=== PATIENT | female | born 1985 | race African-American/Black ===

== ENCOUNTER 2017-08-19 12:59 | Emergency (ER) | payer BC ==
--- OUTSIDE RECORDS SUMMARY | 2017-08-19 13:01 | XMS REPORT | Clinical Summary ---
:1985 Author Organization [facility] Address [address] [place] [address] Care Team Providers Name Role Phone Asked, No Pcp Primary Care Provider Unavailable Allergies Not on File Current Medications Not on file Active Problems Not on file Encounters Date Type Specialty Care Team Description 12/11/2016 Hospital Encounter Radiology Dejuan Rosales V., Nausea; Diarrhea, unspecified type 12/11/2016 Ancillary Orders Access Dejuan Rosales V., Nausea; Diarrhea, unspecified type 12/08/2016 Transcribe Orders Access Dejuan Rosales V., Nausea (Primary Dx); Diarrhea, unspecified type after 08/18/2016 Social History Tobacco Use Types Packs/Day Years Used Date Never Assessed Sex Assigned at Date Recorded Not on file Last Filed Vital Signs Not on file Plan of Treatment Health Maintenance Due Date Last Done Comments PAP SMEAR 2006 INFLUENZA VACCINE 12/16/2017 Results [place] Upper GI (12/11/2016 10:41 AM) Specimen Performing Laboratory [facility] [address] [place] [address] Narrative EXAMINATION:[place] UPPER GI CLINICAL HISTORY:R11.0 Nausea, R19.7 Diarrheaunspecified, R11.0--NAUSEA-R19.1-QPSVLUGI-R29.89 COMPARISON:None. TECHNIQUE: Upper GI series was performed with barium. FLUOROSCOPIC TIME:2.4 minutes NUMBER OF IMAGES: 15 FINDINGS: 1.Esophagus:Esophagus was distensible. The mucosa and motility were within normal limits. There is no evidence of stricture. 2.Gastroesophageal junction:Small hiatal hernia with mild gastroesophageal reflux with water siphon challenge. 3.Stomach:Normally distensible and demonstrates normal contours and mucosal pattern. 4.Duodenum:Bulb and sweep are normal. The duodenal-jejunal junction is in the normal expected position. IMPRESSION: 1. Small hiatal hernia with mild gastroesophageal reflux. [facility]-[id number] Procedure Note Interface, Radiology Results Incoming - 12/11/2016 10:49 AM CDT EXAMINATION: [place] UPPER GI CLINICAL HISTORY: R11.0 Nausea, R19.7 Diarrhea unspecified, R11.0--NAUSEA- R19.1-[id number]-Q58.89 COMPARISON: None. TECHNIQUE: Upper GI series was performed with barium. FLUOROSCOPIC TIME: 2.4 minutes NUMBER OF IMAGES: 15 FINDINGS: 1. Esophagus: Esophagus was distensible. The mucosa and motility were within normal limits. There is no evidence of stricture. 2. Gastroesophageal junction: Small hiatal hernia with mild gastroesophageal reflux with water siphon challenge. 3. Stomach: Normally distensible and demonstrates normal contours and mucosal pattern. 4. Duodenum: Bulb and sweep are normal. The duodenal-jejunal junction is in the normal expected position. IMPRESSION: 1. Small hiatal hernia with mild gastroesophageal reflux. [facility]-[id number] after 08/18/2016 Insurance Payer Benefit Plan / Group Subscriber ID Type Phone Address BCBS BCBS CHOICE PPO/FEDERAL EMPL PPO xxxxxxxxxxxx PPO [phone] [place] [id number]
[2017-08-19 14:38] LABS: Absolute Lymphocytes (CBC) 2.6 K/uL (0.7-4.9); Absolute Monocytes 0.6 K/uL (0.1-1.3); Absolute Neutrophil 5.7 K/uL (1.8-8.0); Basophils % 0.2 % (0-1.3); Eosinophils % 0.4 % (0-4.4); Hematocrit 36.9 % (36.0-45.0); Lymphocytes % 28.4 % (15.3-44.8); MCH 26.3 pg (27.0-35.0); MCV 80.8 fL (80-100); MPV 8.8 fL (7.6-11.3); Monocytes % 7.2 % (3.3-12.3); RBC Red Blood Cell Count 4.57 M/uL (3.86-4.86)
--- NOTE | 2017-08-19 14:44 | RAD REPORT ---
EXAM DESCRIPTION: Tanja Single View08/19/2017 1:55 pm CLINICAL HISTORY: Chest pain/palpitation COMPARISON: 2017 FINDINGS: The lungs appear clear of acute infiltrate. The heart is normal size IMPRESSION: No acute abnormalities displayed
[2017-08-19 14:54] LABS: Potassium 3.5 mEq/L (3.6-5.0)
[2017-08-19 15:00] LABS: Albumin 3.8 g/dL (3.2-5.5); Bilirubin Direct 0.1 mg/dL (0-0.2); Bilirubin Total 0.4 mg/dL (0.3-1.2); Magnesium 1.7 mg/dL (1.8-2.5); Protein, Total 7.2 g/dL (6.0-8.3)
--- NOTE | 2017-08-19 15:12 | ER ---
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 Transition of care: patient was not received from another setting of care. Onset of symptoms was August 19, 2017. Note EKG being done. Care prior to arrival: None. 13:30 Method Of Arrival: Ambulatory tl3 13:30 Acuity: SHIRLEY 3 tl3 Triage Assessment: 13:35 General: Appears uncomfortable, well groomed, well developed, well nourished, Behavior tl3 is calm, cooperative, appropriate for age. Pain: Denies pain. EENT: No signs and/or symptoms were reported regarding the EENT system. Neuro: Level of Consciousness is awake, alert, obeys commands, Oriented to person, place, time, situation, Appropriate for age. Cardiovascular: Denies chest pain, Heart tones S1 S2 present Capillary refill < 3 seconds in bilateral fingers. Respiratory: Airway is patent Trachea midline Respiratory effort is even, unlabored, Breath sounds are clear bilaterally. GI: No signs and/or symptoms were reported involving the gastrointestinal system. : Derm: No signs and/or symptoms reported regarding the dermatologic system. Musculoskeletal: No signs and/or symptoms reported regarding the musculoskeletal system. 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 - Social history:: Smoking status: Patient/guardian denies using tobacco, never smoked. Screenin:03 Abuse screen: Denies threats or abuse. Nutritional screening: No deficits noted. tl3 Tuberculosis screening: No symptoms or risk factors identified. Fall Risk None identified. Assessment: 13:38 Reassessment: EKG complete. tl3 15:01 Reassessment: Patient appears in no apparent distress at this time. No changes from tl3 previously documented assessment. Patient and/or family updated on plan of care and expected duration. Pain level reassessed. Patient is alert, oriented x 3, equal unlabored respirations, skin warm/dry/pink. 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 Vital Signs: 13:35 BP 122 / 80; Pulse 84; Resp 18; Pulse Ox 98% on R/A; Weight 127.01 kg; Height 5 ft. 3 tl3 in. (160.02 cm); 14:50 BP 125 / 72; Pulse 81; Resp 16; Pulse Ox 100% on R/A; tl3 13:35 Body Mass Index 49.60 (127.01 kg, 160.02 cm) tl3 ED Course: 13:02 Patient arrived in ED. mr 13:02 Jose Galvez MD is Private Physician. mr 13:24 [facility]. cp 13:24 Jesus Cervantes MD is Attending Physician. cp 13:30 Masha Esquivel, TONY is Primary Nurse. tl3 13:32 Triage completed. tl3 13:35 Arm band placed on right wrist. tl3 13:36 EKG done, by management services technician. reviewed by Jesus Cervantes MD. tc 13:51 No provider procedures requiring assistance completed. X-ray(s) taken. tl3 13:51 Patient has correct armband on for positive identification. Placed in gown. Bed in low tl3 position. Call light in reach. Side rails up X 1. Warm blanket given. 13:52 X-ray completed. Portable x-ray completed in exam room. Patient tolerated procedure la2 well. 13:53 XRAY Chest (1 view) In Process Unspecified. EDMS 14:11 Missed attempt(s): 20 gauge in right antecubital area. Bleeding controlled, band aid dh3 applied, catheter tip intact. Missed attempt(s): 22 gauge in left hand. Bleeding controlled, band aid applied, catheter tip intact. 14:25 Inserted saline lock: 22 gauge in right hand, using aseptic technique. Blood collected. tl3 14:35 Urine collected: clean catch specimen, clear. dh3 15:04 IV discontinued, intact, bleeding controlled, No redness/swelling at site. Pressure tl3 dressing applied. Administered Medications: No medications were administered Outcome: 15:02 AMA AMA form signed tl3 15:02 Condition: stable 15:02 Instructed on follow up and referral plans. stressed follow up with PCP/Firmware Test Engineer and return to ED with any worsening S/S 15:22 Patient left the ED. iw Signatures: Dispatcher [employer] EDMS Sneha Dent Irene, RN RN iw Kandice Vila, guest services agent EKG Ttc Jesus Paulson PA PA cp Herrera, Deanna 3 Brook Osorio Tammy, RN RN tl3 Corrections: (The following items were deleted from the chart) 13:46 13:35 BP 122 / 80; Pulse 4bpm; Resp 18bpm; Pulse Ox 98% RA; 127.01 kg; Height 5 ft. 3 tl3 in.; BMI: 49.6; tl3
--- NOTE | 2017-08-19 15:12 | EDPHYS ---
Physician Documentation [facility] Name: Adrianne Rodríguez Age: 32 yrs Sex: Female : 1985 Arrival Date: 08/19/2017 Time: 13:02 Bed External Waiting Private MD: Jose Galvez ED Physician Jesus Cervantes HPI: 08/19 13:30 This 32 yrs old Black Female presents to ER via Ambulatory with complaints of Fast cp heart rate. 13:30 The patient presents with a history of heart racing. cp 13:30 Context: The symptoms occur with light activity. Onset: The symptoms/episode cp began/occurred today. Duration: The patient or guardian reports a single episode, that is still ongoing. Associated signs and symptoms: Pertinent negatives: chest pain, cough, fever, lightheadedness, SOB, syncope, near-syncope. Severity of symptoms: in the emergency department the symptoms are unchanged. 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 - Social history:: Smoking status: Patient/guardian denies using tobacco, never smoked. ROS: 13:33 Constitutional: Negative for body aches, chills, fever, poor PO intake. cp 13:33 Eyes: Negative for injury, pain, redness, and discharge. cp 13:33 ENT: Negative for drainage from ear(s), ear pain, sore throat, difficulty swallowing, difficulty handling secretions. 13:33 Cardiovascular: Positive for palpitations, Negative for chest pain, edema. 13:33 Respiratory: Negative for cough, hemoptysis, pleurisy, shortness of breath, wheezing. 13:33 Abdomen/GI: Negative for abdominal pain, nausea, vomiting, and diarrhea, anorexia, black/tarry stool, rectal bleeding. 13:33 Back: Negative for pain at rest, pain with movement, radiated pain. 13:33 : Negative for urinary symptoms, vaginal bleeding, vaginal discharge. 13:33 Skin: Negative for cellulitis, rash. 13:33 Neuro: Negative for altered mental status, dizziness, headache, loss of consciousness, syncope, near syncope, weakness. 13:33 All other systems are negative. Exam: 13:35 ECG was reviewed by the Attending Physician. cp 15:38 Constitutional: The patient appears in no acute distress, alert, awake, cp non-diaphoretic, non-toxic, well developed, well nourished. 15:38 Head/Face: Normocephalic, atraumatic. cp 15:38 Eyes: Pupils equal round and reactive to light, extra-ocular motions intact. Lids and lashes normal. Conjunctiva and sclera are non-icteric and not injected. Cornea within normal limits. Periorbital areas with no swelling, redness, or edema. ENT: Nares patent. No nasal discharge, no septal abnormalities noted. Tympanic membranes are normal and external auditory canals are clear. Oropharynx with no redness, swelling, or masses, exudates, or evidence of obstruction, uvula midline. Mucous membranes moist. Neck: Trachea midline, no thyromegaly or masses palpated, and no cervical lymphadenopathy. Supple, full range of motion without nuchal rigidity, or vertebral point tenderness. No Meningismus. Chest/axilla: Normal chest wall appearance and motion. Nontender with no deformity. No lesions are appreciated. 15:38 Cardiovascular: Rate: normal, Rhythm: regular, Edema: is not appreciated, JVD: is not appreciated. 15:38 Respiratory: the patient does not display signs of respiratory distress, Respirations: normal, no use of accessory muscles, no retractions, no splinting, no tachypnea, labored breathing, is not present, Breath sounds: are clear throughout, no decreased breath sounds, no stridor, no wheezing. 15:38 Abdomen/GI: Inspection: abdomen appears normal, Bowel sounds: active, all quadrants, Palpation: abdomen is soft and non-tender, in all quadrants, rebound tenderness, is not appreciated, voluntary guarding, is not appreciated, involuntary guarding, is not appreciated. 15:38 Back: pain, is absent, ROM is normal. 15:38 Skin: cellulitis, is not appreciated, no rash present. 15:38 Neuro: Orientation: to person, place \T\ time. Mentation: lucid, able to follow commands, Cerebellar function: is grossly normal, Motor: moves all fours, strength is normal, Sensation: no obvious gross deficits, Gait: is steady, at a normal pace, without difficulty. Vital Signs: 13:35 BP 122 / 80; Pulse 84; Resp 18; Pulse Ox 98% on R/A; Weight 127.01 kg; Height 5 ft. 3 tl3 in. (160.02 cm); 14:50 BP 125 / 72; Pulse 81; Resp 16; Pulse Ox 100% on R/A; tl3 13:35 Body Mass Index 49.60 (127.01 kg, 160.02 cm) tl3 MDM: 13:24 Patient medically screened. cp 15:10 Data reviewed: vital signs, nurses notes, EKG, radiologic studies, plain films. cp 15:10 Refusal of service: The patient/guardian displays adequate decision making capability cp and despite a detailed discussion of alternatives, benefits, risks, and consequences refuses: to wait for lab results. 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 08/19 13:43 Order name: Basic Metabolic Panel 08/19 13:43 Order name: CBC with Diff; Complete Time: 14:54 08/19 14:54 Interpretation: MCV 80.8; MCH 26.3; RDW 15.3; Reviewed. 08/19 13:43 Order name: LFT's cp 08/19 13:43 Order name: Magnesium cp 08/19 13:43 Order name: TSH cp 08/19 13:43 Order name: T3 Free cp 08/19 13:26 Order name: EKG; Complete Time: 13:27 cp 08/19 13:26 Order name: EKG - Nurse/Tech; Complete Time: 14:12 cp 08/19 13:26 Order name: Urine Dipstick-Ancillary (obtain specimen); Complete Time: 14:35 cp 08/19 13:26 Order name: Urine Test (obtain specimen); Complete Time: 14:35 cp 08/19 13:43 Order name: XRAY Chest (1 view); Complete Time: 14:54 cp 08/19 13:43 Order name: Cardiac monitoring; Complete Time: 14:12 cp 08/19 13:43 Order name: IV Saline Lock; Complete Time: 14:12 cp 08/19 13:43 Order name: Labs collected and sent; Complete Time: 14:35 cp 08/19 13:43 Order name: O2 Per Protocol; Complete Time: 14:16 cp 08/19 13:43 Order name: O2 Sat Monitoring; Complete Time: 14:16 cp EC:35 Rate is 88 beats/min. Rhythm is regular. TX interval is normal. QRS interval is normal. cp T waves are Normal. No ST changes noted. Interpreted by me. Reviewed by me. Administered Medications: No medications were administered Disposition: 08/20 07:31 Co-signature as Attending Physician, Jesus Cervantes MD I agree with the assessment and [facility] plan of care. Disposition: 08/19/17 15:12 Patient has left against medical advice. Impression: Palpitations. - Patients states they are going to Home. - Condition is Stable. - Discharge Instructions: Palpitations. Follow up: Private Physician; When: 1 - 2 days; Reason: Recheck today's complaints. - Problem is new. - Symptoms have improved. Signatures: Dispatcher [employer] Jesus Dennis MD MD cha Williams, Irene, RN RN Jesus Kendall PA PA cp Lowrey, Tammy, RN RN tl3
[2017-08-19 15:13] LABS: T3 Free 3.6 pg/ml (2.84-4.24)
[2017-08-19 15:31] LABS: Thyroid Stimulating Hormone 1.6 uIU/mL (0.34-5.60)
--- NOTE | 2017-08-19 15:50 | EKG ---
Test Date: 2017-08-19 Test Time: 13:31:03 Machine Setter: ODILIA MEASUREMENT RESULTS: Intervals: Rate: 88 NC: 164 QRSD: 84 QT: 364 QTc: 440 [place]: P: 52 NC: 164 QRS: 34 T: 22 INTERPRETIVE STATEMENTS: Normal sinus rhythm Normal ECG Compared to ECG 06/09/2016 09:55:42 Sinus arrhythmia no longer present Electronically Signed On 08-19-17 15:49:25 CDT by Joe Camargo
== END 2017-08-19 15:22 | disposition left against medical advice (07) ==
LOC: ER 12:59
DX: R00.2 Palpitations (principal); I34.1 Nonrheumatic mitral (valve) prolapse; F32.9 Major depressive disorder, single episode, unspecified
CPT/HCPCS: 36415; 71045; 80048; 80076; 83735; 84443; 84481; 85025; 93005; 99284